=== PATIENT | male | born 1940 | race Two or more races ===

== ENCOUNTER → 2016-08-20 04:19 | Emergency (ER) | payer BC ==
[~2016-08-20 04:19] MED LIST: Al Hydrox/Mg Hydrox/Simet LIQ* 30 ML UDC PO ONE; Aspirin Low Dose CHEW TAB* 81 MG PO ONE; Iohexol 350* (CONTRAST) 500 ML MDV IV ONE; Levofloxacin 750 MG IVPREMIX(* 750 MG/150 ML BAG IVPB ONE; NS 0.9% 1000 ML* 1,000 ML IV ONE
--- NOTE | 2016-08-20 05:16 | ED ---
Chavo Oroepza Matthew, scribed for Manjinder Islas MD on 08/20/16 at 0451 . Shortness of Breath - HPI Summary HPI Summary: A 76 y/o male presents to the ED with constant SOB since last night after choking on supplement tablets. Associated symptoms include coughing and hoarse voice. The pain is rated 0/10 in severity. - History of Current Complaint Chief Complaint: EDShortnessOfBreath Time Seen by Provider: 08/20/16 04:36 Hx Obtained From: Patient Onset/Duration: Gradual Onset, Lasting Days, Still Present Timing: Constant Current Severity: Moderate Dyspnea At: Rest Associated Signs & Symptoms: Cough (Nonproductive) - Allergy/Home Medications Allergies/Adverse Reactions: Allergies Allergy/AdvReac Type Severity Reaction Status Date / Time Gluten Meal Allergy Unknown Verified 08/20/16 04:29 Reaction Details Penicillins Allergy Itching Verified 08/08/13 06:19 PEANUTS Allergy Itching Uncoded 08/08/13 06:19 PMH/Surg Hx/FS Hx/Imm Hx Cardiovascular History: Reports: Hx Angina, Hx Coronary Artery Disease, Hx Hypercholesterolemia, Hx Hypertension Sensory History: Reports: Hx Contacts or Glasses - GLASSES Opthamlomology History: Reports: Hx Contacts or Glasses - GLASSES Neurological History: Reports: Hx Headaches Psychiatric History: Reports: Hx Anxiety, Hx Depression - MEDS PRN - Surgical History Surgery Procedure, Year, and Place: 1991 RIGHT ING. HERNIA REPAIR [facility] [place]. [place]- 1970 NUMEROUS URETHRAL PROCEDURES [facility] [place]. 2001 HEART BY PASS SURGERY [facility] Hx Anesthesia Reactions: No Infectious Disease History: Denies: Hx Known/Suspected VRSA, Traveled Outside the [place] in Last 30 Days - Family History Family History: No FHx of malignant hyperthermia. No FHx of anesthesia reaction - Social History Lives: With Family Alcohol Use: None Substance Use Type: Reports: None Review of Systems Constitutional: Negative Eyes: Negative ENT: Other - Horase Voice Cardiovascular: Negative Positive: Shortness Of Breath, Cough Gastrointestinal: Negative Genitourinary: Negative Musculoskeletal: Negative Skin: Negative Neurological: Negative Psychological: Normal All Other Systems Reviewed And Are Negative: Yes Physical Exam Triage Information Reviewed: Yes Vital Signs On Initial Exam: Initial Vitals Temp Pulse Resp BP Pulse Ox 99 F 118 18 135/70 98 08/20/16 04:25 08/20/16 04:25 08/20/16 04:25 08/20/16 04:25 08/20/16 04:25 Vital Signs Reviewed: Yes Appearance: Positive: Well-Appearing, No Pain Distress Skin: Positive: Warm Head/Face: Positive: Normal Head/Face Inspection Eyes: Positive: THOM ENT: Positive: Hearing grossly normal Neck: Positive: Supple Respiratory/Lung Sounds: Positive: Clear to Auscultation, Breath Sounds Present Cardiovascular: Positive: RRR Abdomen Description: Positive: Nontender, Soft Bowel Sounds: Positive: Present Musculoskeletal: Positive: Strength/ROM Intact Neurological: Positive: Sensory/Motor Intact, Alert, Oriented to Person Place, Time Psychiatric: Positive: Normal Diagnostics - Vital Signs Vital Signs Temp Pulse Resp BP Pulse Ox 08/20/16 04:25 99 F 118 18 135/70 98 - Laboratory Result Diagrams: 08/20/16 05:05 08/20/16 05:05 Lab Statement: Any lab studies that have been ordered have been reviewed, and results considered in the medical decision making process. - Radiology CXR Xray Interpretation: No Acute Changes Radiology Interpretation Completed By: ED Physician - EKG 04:32 Cardiac Rate: Tachycardia - 109 bpm EKG Rhythm: Sinus Tachycardia EKG Interpretation: No STEMI Discharge - Discharge Plan Condition: Stable Disposition: OTHER Discharge Disposition Comment: The patient is signed out to Dr. Haywood pending second troponin. Referrals: Dariela Oliveira MD [Primary Care Provider] - The documentation as recorded by the Chavo ho Matthew accurately reflects the service I personally performed and the decisions made by me, Manjinder Islas MD.
[2016-08-20 05:22] LABS: Hematocrit 42 % (42-52); Hemoglobin 13.8 g/dl (14.0-18.0); Mean Corpuscular HGB Conc 33 g/dl (31-36); Mean Corpuscular Hemoglobin 31 pg (27-31); Mean Corpuscular Volume 95 fL (80-94); Mean Platelet Volume 11 um3 (7.4-10.4); Red Cell Distribution Width 13 % (10.5-15); White Blood Count 16.1 10^3/ul (3.5-10.8)
[2016-08-20 05:34] LABS: Albumin 3.9 g/dL (3.2-5.2); BUN/Creatinine Ratio 15.3 (8-20); Calcium 9.2 mg/dL (8.6-10.3); EGFR African American 95.4 (>60); EGFR Non-African American 74.2 (>60); Globulin 3.4 g/dL (2-4); Potassium 4.3 mmol/L (3.5-5.0); Total Protein 7.3 g/dL (6.4-8.9)
[2016-08-20 05:36] LABS: Troponin I 0.02 ng/mL (<0.04)
--- NOTE | 2016-08-20 07:45 | RAD ---
INDICATION: Chest pain COMPARISON: September 15, 2013 TECHNIQUE: PA and lateral dual-energy views were obtained. FINDINGS: Bones/Soft Tissues: There are no acute bony findings. There is sternotomy/CABG Cardiomediastinal: The cardiomediastinal silhouette is unchanged. Lungs: There are no infiltrates. There is mild chronic interstitial change with hyperinflation. There are mild chronic airspace changes in left lung base. Pleura: There are no pleural effusions. Other: None IMPRESSION: NO ACUTE INFILTRATES. HYPERINFLATION WITH MINIMAL CHRONIC LEFT BASILAR CHANGE. CABG.
--- NOTE | 2016-08-20 10:08 | RAD ---
INDICATION: Shortness of breath. Hemoptysis. Assess for pulmonary embolism. Preceding choking episode. COMPARISON: August 20, 2016 chest radiograph. TECHNIQUE: Multidetector CT images were obtained from the lung apices to the upper abdomen with 58 mL Omnipaque 350 IV contrast. Pulmonary angiogram protocol. Multiplanar reformation including with maximum intensity projection. REPORT: Moderately coarse interstitial markings. Consolidation at the basilar segments of the LEFT lower lobe without significant volume loss suspicious for pneumonia. Negative for pleural effusions. Negative for pneumothorax. Median sternotomy wires. Mildly enlarged bilateral hilar lymph nodes measuring up to 1.2 cm short axis diameter. Mild cardiomegaly. Negative for pericardial effusion. Normal diameter thoracic aorta with mild atherosclerotic plaque. Negative for dissection of the thoracic aorta. No filling defects are identified from the main to the subsegmental pulmonary arteries to indicate presence of a pulmonary embolism. No suspicious finding at the limited visualized images through the upper abdomen. Negative for suspicious osseous lesions. IMPRESSION: 1. Negative for pulmonary embolism. 2. The constellation of findings favors LEFT lower lobe pneumonia. 3. Mild bilateral hilar lymphadenopathy. 4. Given cardiomegaly and prominence of the interstitial markings including peripheral thickened interlobular septa in the lower lung zones interstitial edema is not excluded.
--- NOTE | 2016-08-20 11:43 | ED ---
I, DoctorPeri, scribed for Agus Haywood MD on 08/20/16 at 0735 . Progress - Progress Note Progress Note: Re-Evaluation at 07:34 - Sign-out from Dr. Islas. Pt came in after swallowing some pills at home, the pills became stuck in his throat last evening. He then noticed that he was SOB, hoarse, and he coughed up some blood. He was also complaining of chest tightness. He says he has chills as well. He says he is still SOB. He hasn't coughed up blood since midnight. He states it hurts to swallow. He does not feel like there are any pills stuck in his throat. He also states he gets some chest tightness and SOB with exertion, he states he had CABS for MS years ago and had a stress test 1.5 years ago. Physical Exam - General appearance: well appearing, NAD, normal development, good nutrition, normal body habitus, well groomed HEENT: both TMs intact, no rhinorrhea, PERRL. posterior pharynx is erythemous, no exudates/swelling, no post-nasal drip Neck: supple, symmetric without masses or tracheal deviation, no thyromegaly Chest: diminished breath sounds in bases Cardiovascular: RRR without murmurs Skin: warm, dry Neurological/Psychiatric: appropriate judgment and insight, oriented to time, place and person, normal mood and affect - Results/Orders Results/Orders: Chest/Thorax CTA - Impression (Radiologist) 1. Negative for pulmonary embolism. 2. The constellation of findings favors LEFT lower lobe pneumonia. 3. Mild bilateral hilar lymphadenopathy. 4. Given cardiomegaly and prominence of the interstitial markings including peripheral thickened interlobular septa in the lower lung zones interstitial edema is not excluded. - EKG/XRAY/CT Comments: EKG at 0752: NSR, Normal [place], No STEMI Re-Evaluation - Re-Evaluation First Eval Re-Evaluation Time: 07:34 Comment: Re-evaluated pt; pending labs. Second Eval Re-Evaluation Time: 09:03 Change: Improved Comment: Pt reports he is not feeling as SOB; still feeling chills and coughing but has not coughed up any blood. He has a slightly elevated D-Dimer. Third Eval Re-Evaluation Time: 10:21 Comment: Reviewed CT and labs, pt would like to try out-patient. He will be treated with abx for pneumonia. Course/Dx - Course Course Of Treatment: 1019: CTA shows left lower lobe pneumonia, will put pt on abx and go from there. 1027: Pt will be administered 750 mg Levaquin, told to follow up with Dr. Oliveira (PCP) - Diagnoses Provider Diagnoses: Pneumonia The documentation as recorded by the Doctor ho Tahera accurately reflects the service I personally performed and the decisions made by me, Agus Haywood MD.
[2016-08-20 12:03] VITALS: BP 122/61
== END | disposition home or self-care (01) ==
LOC: ED 04:19
DX: J18.9 Pneumonia, unspecified organism (principal); R05 Cough; R06.02 Shortness of breath
CPT/HCPCS: 36415; 71020; 71275; 80053; 83605; 83880; 84484; 85025; 85379; 93005; 99283; A9270-GY; Q9967

== ENCOUNTER 2018-10-18 01:13 | Emergency (ER) | payer BC ==
[2018-10-18] MEDS ORDERED: Lidocaine 2% VISCOUS* 15 ML UDC PO ONE (01:44)
[2018-10-18] MEDS ORDERED: Al Hydrox/Mg Hydrox/Simet LIQ* 30 ML UDC PO ONE (01:44)
[2018-10-18] MEDS ORDERED: Pantoprazole IV* 40 MG IV ONE (01:45)
--- NOTE | 2018-10-18 01:45 | ED ---
Complex/Multi-Sys Presentation - HPI Summary HPI Summary: Patient is a 78 y/o M presenting to ED with complaints of chest pain, SOB, vomiting, dysphagia after he choked on a pill earlier tonight, 10/17/18 at around 2330. He states that he took his typical medication tonight, choked on the pill, and started vomiting 10 minutes afterwards. Onset of SOB and chest pain occurred ten minutes after this. In the room, he notes some dysphagia. He states that he was not able to bring the pill he took back up. He notes that coughing aggravates Sx. PMHx of angina, CAD, HLD, HTN, anxiety, depression. On triage, pain is rated 8/10. Home medications and allergies are reviewed. - History Of Current Complaint Chief Complaint: EDChestPainROMI Time Seen by Provider: 10/18/18 01:24 Hx Obtained From: Patient Onset/Duration: Lasting Hours, Still Present Timing: Constant, Hours Severity Currently: Severe Location: Pain At: - chest Aggravating Factor(s): coughing Alleviating Factor(s): nothing Associated Signs And Symptoms: Positive: SOB, Chest Pain, Vomiting, Other - positive - dysphagia - Allergies/Home Medications Allergies/Adverse Reactions: Allergies Allergy/AdvReac Type Severity Reaction Status Date / Time MS Gluten Meal [Gluten Meal] Allergy Mild Unknown Verified 10/18/18 04:22 Reaction Details MS Penicillins [Penicillins] Allergy Itching Verified 10/18/18 04:22 PEANUTS Allergy Itching Uncoded 10/18/18 04:22 Home Medications: Home Medications Vegetarian Glucosamine 10/18/18 [History] PMH/Surg Hx/FS Hx/Imm Hx Cardiovascular History: Reports: Hx Angina, Hx Coronary Artery Disease, Hx Hypercholesterolemia, Hx Hypertension Sensory History: Reports: Hx Contacts or Glasses - GLASSES Opthamlomology History: Reports: Hx Contacts or Glasses - GLASSES Neurological History: Reports: Hx Headaches Psychiatric History: Reports: Hx Anxiety, Hx Depression - MEDS PRN - Surgical History Surgery Procedure, Year, and Place: 1991 RIGHT ING. HERNIA REPAIR [facility]. 1965- 1970 NUMEROUS URETHRAL PROCEDURES [facility] [place]. 2001 HEART BY PASS SURGERY [facility] Hx Anesthesia Reactions: No Infectious Disease History: No Infectious Disease History: Denies: Hx Known/Suspected VRSA, Traveled Outside the [place] in Last 30 Days - Family History Known Family History: Positive: Other - No FHx of malignant hyperthermia, anesthesia Family History: No FHx of malignant hyperthermia. No FHx of anesthesia reaction - Social History Alcohol Use: None Substance Use Type: Reports: None Hx Tobacco Use: No Smoking Status (MU): Never Smoked Tobacco Review of Systems ENT: Other - positive - dysphagia Positive: Chest Pain Positive: Shortness Of Breath Positive: Vomiting All Other Systems Reviewed And Are Negative: Yes Physical Exam - Summary Physical Exam Summary: VITAL SIGNS: Reviewed. GENERAL: Patient is a well-developed and nourished male who is lying comfortable in the stretcher. Patient is not in any acute respiratory distress. He is able to pass water. HEAD AND FACE: No signs of trauma. No ecchymosis, hematomas or skull depressions. No sinus tenderness. EYES: PERRLA, EOMI x 2, No injected conjunctiva, no nystagmus. EARS: Hearing grossly intact. Ear canals and tympanic membranes are within normal limits. MOUTH: Oropharynx within normal limits. NECK: Supple, trachea is midline, no adenopathy, no JVD, no carotid bruit, no c- spine tenderness, neck with full ROM CHEST: Symmetric, no tenderness at palpation LUNGS: Decreased breath sounds bilaterally. No wheezing or crackles. CVS: Regular rate and rhythm, S1 and S2 present, no murmurs or gallops appreciated. ABDOMEN: Soft, non-tender. No signs of distention. No rebound no guarding, and no masses palpated. Bowel sounds are normal. EXTREMITIES: FROM in all major joints, no edema, no cyanosis or clubbing. NEURO: Alert and oriented x 3. No acute neurological deficits. Speech is normal and follows commands. SKIN: Dry and warm Triage Information Reviewed: Yes Vital Signs On Initial Exam: Initial Vitals Temp Pulse Resp BP Pulse Ox 97.8 F 99 19 172/96 90 10/18/18 01:15 10/18/18 01:15 10/18/18 01:15 10/18/18 01:15 10/18/18 01:15 Vital Signs Reviewed: Yes Diagnostics - Vital Signs Vital Signs Temp Pulse Resp BP Pulse Ox 10/18/18 01:15 97.8 F 99 19 172/96 90 - Laboratory Result Diagrams: 10/18/18 01:30 10/18/18 01:30 Lab Statement: Any lab studies that have been ordered have been reviewed, and results considered in the medical decision making process. - Radiology CXR Radiology Interpretation Completed By: ED Physician Summary of Radiographic Findings: CXR mild blunting of right CPA, pending official report. - EKG 0122 Cardiac Rate: NL - rate of 93 BPM EKG Rhythm: Sinus Rhythm Summary of EKG Findings: EKG showed sinus rhythm with rate of 93 BPM, normal axis, normal interval, no ischemic changes. Re-Evaluation - Re-Evaluation First Eval Re-Evaluation Time: 05:27 Comment: Results of labs and tests were discussed with the patient. Patient will be discharged to home and follow up with PCP. Strict return precautions were given. Patient is agreeable with this plan Complex Multi-Symp Course/Dx Course Of Treatment: Patient is a 78 y/o M presenting to ED with complaints of chest pain, SOB, vomiting, dysphagia after he choked on a pill earlier tonight, 10/17/18 at around 2330. He states that he took his typical medication tonight, choked on the pill, and started vomiting 10 minutes afterwards. Onset of SOB and chest pain occurred ten minutes after this. In the room, he notes some dysphagia. He states that he was not able to bring the pill he took back up. He notes that coughing aggravates Sx. PMHx of angina, CAD, HLD, HTN, anxiety, depression. Patient was given water PO. Patient was able to pass water. Decerased breath sounds bilaterally are noted. EKG showed sinus rhythm with rate of 93 BPM, normal axis, normal interval, no ischemic changes. CXR mild blunting of right CPA. Labs showed MCV 97, MCH 32, MPV 11, BUN/creatinine ratio 24.7, glucose 242, trop negative. During ED course, patient received protonix 40 mg IV, lidocaine 15 ml PO, Maalox 30 ml PO. Results of labs and tests were discussed with the patient. Patient will be discharged to home and follow up with PCP. Strict return precautions were given. Patient is agreeable with this plan. - Diagnoses Provider Diagnoses: Choking episode Discharge - Sign-Out/Discharge Documenting (check all that apply): Patient Departure - discharge Patient Received Moderate/Deep Sedation with Procedure: No - Discharge Plan Condition: Stable Disposition: HOME Patient Education Materials: Foreign Body Ingestion (ED) Referrals: Dariela Oliveira MD [Primary Care Provider] - 3 Days Additional Instructions: PLEASE RETURN TO THE ED IMMEDIATELY FOR WORSENING OR CONCERNING SYMPTOMS. FOLLOW UP WITH YOUR PRIMARY CARE PHYSICIAN WITHIN THREE DAYS. - Attestation Statements Document Initiated by Scribe: Yes Documenting Scribe: ABEL MIMS Provider For Whom Cecilia is Documenting (Include Credential): BIRD SOUZA MD Scribe Attestation: I, ABEL MIMS, scribed for BIRD SOUZA MD on 10/18/18 at 0550. Status of Scribe Document: Ready
[2018-10-18 01:57] LABS: ABS Basophils 0.1 10^3/ul (0-0.2); ABS Eosinophils 0.3 10^3/ul (0-0.6); ABS Lymphocytes 2.8 10^3/ul (1.0-4.8); ABS Monocytes 0.6 10^3/ul (0-0.8); ABS Neutrophils 5.5 10^3/ul (1.5-7.7); Eosinophil % 3.7 %; Hematocrit 42 % (42-52); Lymphocyte % 29.8 %; Mean Corpuscular HGB Conc 33 g/dL (31-36); Mean Corpuscular Hemoglobin 32 pg (27-31); Mean Corpuscular Volume 97 fL (80-94); Platelet Count 171 10^3/uL (150-450); Red Blood Count 4.36 10^6 /uL (4.18-5.48); Red Cell Distribution Width 13 % (10-15); White Blood Count 9.3 10^3/uL (3.5-10.8)
[2018-10-18 02:07] LABS: INR 1.02 (0.82-1.09)
[2018-10-18 02:10] LABS: Albumin 3.8 g/dL (3.2-5.2); Albumin/Globulin Ratio 1.1 (1-3); BUN/Creatinine Ratio 24.7 (8-20); Calcium 9.2 mg/dL (8.6-10.3); EGFR African American 90.3 (>60); EGFR Non-African American 74.7 (>60); Globulin 3.4 g/dL (2-4); Potassium 3.9 mmol/L (3.5-5.0); Total Bilirubin 0.4 mg/dL (0.2-1.0); Total Protein 7.2 g/dL (6.4-8.9)
[2018-10-18 02:13] LABS: Troponin I 0.01 ng/mL (<0.04)
[2018-10-18 05:37] VITALS: BP 140/81
--- NOTE | 2018-10-18 11:57 | PN ---
Progress Note - Progress Note Date of Service: 10/18/18 Note: chest xray final read as: IMPRESSION: LOW LUNG VOLUMES, SMALL LEFT BASILAR INFILTRATE AND PLEURAL EFFUSION. sent script for azithromycin for 5 days. left vm at 11:57.
== END 2018-10-18 05:36 | disposition home or self-care (01) ==
LOC: ED 01:13
DX: T17.998A Other foreign object in respiratory tract, part unspecified causing other injury, initial encounter (principal); X58.XXXA Exposure to other specified factors, initial encounter; I10 Essential (primary) hypertension; I25.10 Atherosclerotic heart disease of native coronary artery without angina pectoris
CPT/HCPCS: 36415; 71045; 80053; 84484; 85025; 85610; 85730; 93005; 96374; 99283; A9270-GY